=== PATIENT | female | born 1990 | race Hispanic/Latino ===

== ENCOUNTER 2020-07-09 20:03 | Emergency (ER) | payer MEDICARE ==
[~2020-07-09] VITALS: Ht 157.5 cm; Wt 114.3 kg
[2020-07-09] MEDS ORDERED: TRAMADOL HCL 50 MG TAB PO ONE (20:30)
[2020-07-09 21:00] LABS: CLARITY,URINE SL CLOUDY (CLEAR); COLOR,URINE YELLOW (YELLOW)
[2020-07-09 21:01] LABS: BILIRUBIN,URINE NEGATIVE (NEGATIVE); KETONES,URINE TRACE (NEGATIVE); LEUKOCYTE ESTERASE ,URINE TRACE (NEGATIVE); NITRITE,URINE NEGATIVE (NEGATIVE); PROTEIN,URINE DIPSTICK 1+ (NEGATIVE); URINE UROBILINOGEN 1 mg/dL (0.2 - 1)
--- NOTE | 2020-07-09 21:08 | Emergency Department Note ---
History of Present Illnes History of Present Illness Chief Complaint: Extremity Trauma/Pain History of Present Illness This is a 29 year old female states she tripped over a ball and landed on right knee at about 1500 today. Patient c/o pain to right knee and right femur area. Patient able to ambulate with assistance. . Historian: Patient Arrival Mode: Car Cushion Former Required: No Onset (how long ago): hour(s) (5) Location: right knee, hip Quality: pain, bruise to right knee Radiation: Reports non-radiation Severity: moderate Onset quality: sudden Duration (how long): hour(s) (5) Timing of current episode: constant Progression: unchanged Chronicity: new Context: Reports trauma/injury (as above) Relieving factors: none Exacerbating factors: movement, other (walking) Associated symptoms: Reports denies other symptoms Past Medical/Family History Physician Review I have reviewed the patient's past medical and family history. Any updates have been documented here. Past Medical History Recent Fever: No Clinical Suspicion of Infectio: No New/Unexplained Change in Ment: No Other Medical History: bipolar Past Surgical History: Social History Smoking Cessation: Unknown if ever smoked Counseling Performed: No Alcohol Use: None Any Illegal Drug Use: No Other Any Pre-Existing Lines (PICC,: No Review of Systems Review of Systems Constitutional: Reports no symptoms EENTM: Reports no symptoms Cardiovascular: Reports no symptoms Respiratory: Reports no symptoms Gastrointestinal: Reports no symptoms Genitourinary: Reports no symptoms Musculoskeletal: Reports as per HPI Integumentary: Reports no symptoms Neurological: Reports no symptoms Psychological: Reports no symptoms Endocrine: Reports no symptoms Hematological/Lymphatic: Reports no symptoms Physical Exam Related Data Allergies: Coded Allergies: No Known Allergies (Unverified , 07/09/20) Triage Vital Signs Vital Signs Date Time Temp Pulse Resp B/P (MAP) Pulse Ox O2 Delivery O2 Flow Rate FiO2 07/09/20 20:18 99.0 79 20 143/67 100 Room Air Vital signs reviewed: Yes Physical Exam CONSTITUTIONAL Constitutional: Present well-developed, Present well-nourished, Present distressed (mild) HENT HENT: Present normocephalic, Present atraumatic, Present oropharynx clear/moist, Present nose normal HENT L/R: Present left ext ear normal, Present right ext ear normal EYES Eyes: Reports PERRL, Reports conjunctivae normal NECK Neck: Present ROM normal PULMONARY Pulmonary: Present effort normal, Present breath sounds normal CARDIOVASCULAR Cardiovascular: Present regular rhythm, Present heart sounds normal, Present capillary refill normal, Present normal rate GASTROINTESTINAL Abdominal: Present soft, Present nontender, Present bowel sounds normal GENITOURINARY Genitourinary: Present exam deferred SKIN Skin: Present warm, Present dry MUSCULOSKELETAL Patient with ecchymosis to right knee over the patella. Pain with range of motion of right knee. Patient also with pain to right hip with range of motion. Neurovascularly intact NEUROLOGICAL Neurological: Present alert, Present oriented x 3, Present no gross motor or sensory deficits PSYCHOLOGICAL Psychological: Present mood/affect normal, Present judgement normal Results Laboratory Laboratory Laboratory Tests Test 07/09/20 20:25 Urine Color Yellow (YELLOW) Urine Clarity Sl cloudy (CLEAR) Urine pH 7 (5 - 7) Urine Specific [place] 1.025 (1.010-1.025) Urine Protein 1+ (NEGATIVE) Urine Glucose (UA) Negative (NEGATIVE) Urine Ketones Trace (NEGATIVE) Urine Blood Large (NEGATIVE) Urine Nitrite Negative (NEGATIVE) Urine Bilirubin Negative (NEGATIVE) Urine Urobilinogen 1 mg/dL (0.2 - 1) Urine Leukocyte Esterase Trace (NEGATIVE) Imaging Imaging results reviewed: Yes Impressions Procedure: [id number] DX/KNEE RIGHT THREE VIEWS Exam Date: 07/09/20 Exam Time: 2144 REPORT STATUS: Signed HIP LEFT 2 VIEWS KNEE RIGHT THREE VIEWS HISTORY: Pain. Fall COMPARISON: None available. FINDINGS: Bones: No acute displaced fracture. Osseous alignment is within normal limits. Joints: The joint spaces are well-maintained. No suprapatellar joint effusion. Soft tissues: The soft tissues appear unremarkable. IMPRESSION: 1. No acute fracture or dislocation of the left hip. 2. No acute fracture or dislocation of the right knee. Signed by: Eduin Pinzon MD on 07/09/2020 11:00 PM Dictated By: EDUIN PINZON MD Assessment & Plan Medical Decision Making MDM Patient with right knee pain with bruising and right hip pain status post fall. Right knee x-ray, right hip x-ray ordered to eval for fractures. Tramadol 50 mg by mouth ordered. Assessment & Plan Final Impression: (1) Contusion of right knee (2) Contusion of right hip Depart Disposition: HOME, SELF-CARE Last Vital Signs Date Time Temp Pulse Resp B/P (MAP) Pulse Ox O2 Delivery O2 Flow Rate FiO2 07/09/20 20:18 99.0 79 20 143/67 100 Room Air Medications in the ED Tramadol HCl 50 mg ONCE ONCE PO Last administered on 07/09/20at 20:41; Admin Dose 50 MG; Start 07/09/20 at 20:30; Stop 07/09/20 at 20:31; Status DC KAE GONCALVES MD Jul 09, 2020 21:08
[2020-07-09 21:13] LABS: BACTERIA,URINE MANY /HPF; EPITHELIAL CELLS,URINE MANY /LPF; TRANSITIONAL EPI CELLS,URINE FEW
[2020-07-09 21:16] LABS: PREGNANCY TEST, URINE NEGATIVE (NEGATIVE)
--- NOTE | 2020-07-09 23:03 | Diagnostic Imaging Report ---
HIP LEFT 2 VIEWS KNEE RIGHT THREE VIEWS HISTORY: Pain. Fall COMPARISON: None available. FINDINGS: Bones: No acute displaced fracture. Osseous alignment is within normal limits. Joints: The joint spaces are well-maintained. No suprapatellar joint effusion. Soft tissues: The soft tissues appear unremarkable. IMPRESSION: 1. No acute fracture or dislocation of the left hip. 2. No acute fracture or dislocation of the right knee. Signed by: Jose Diaz MD on 07/09/2020 11:00 PM
--- NOTE | 2020-07-09 23:32 | NUR ---
[place] wrap applied to knee at this time.
== END 2020-07-09 23:32 | disposition home or self-care (01) ==
LOC: ER 20:19
DX: S80.01XA Contusion of right knee, initial encounter (principal); S70.01XA Contusion of right hip, initial encounter; W01.0XXA Fall on same level from slipping, tripping and stumbling without subsequent striking against object, initial encounter; Y93.01 Activity, walking, marching and hiking
CPT/HCPCS: 81001; 81025; 99283